=== PATIENT | female | born 1980 | race Caucasian/White ===

== ENCOUNTER 2017-07-30 01:15 | Observation (INO) | payer OTHER ==
[~2017-07-30] VITALS: Ht 160 cm; Wt 81.6 kg
[~2017-07-30 01:15] MED LIST: ATORVASTATIN CA20 M1 PO; ATORVASTATIN CA40 M1 PO; MIRENA1 EACH; MULTIVITAMINS1 EAC9 PO; PERCOCET 5-3251 EACH PO; VITAMIN D2000 UNIT PO
--- NOTE | 2017-07-30 14:19 | Admission Core Measures ---
Acute Coronary Syndrome (CM) ACS Core Measures Acute Coronary Syndrome Diagnosis No Congestive Heart Failure (NEW) CHF Core Measures Congestive Heart Failure Diagnosis No Cerebrovascular Accident (NEW) CVA Core Measures CVA/TIA Diagnosis No Venous Thromboembolism VTE Core Porsha (View Protocol) VTE Risk Factors Surgery No Mechanical VTE Prophylaxis d/t N/A MechProphylax Ordered No VTE Pharm Prophylaxis d/t NA PharmProphylax ordered Problem List As ranked by this Provider includes Assessment & Plan 1. Thyroid nodule HOME MEDS Home Med List Atorvastatin Calcium 20 MG TABLET 1 TAB PO DAILY CHOLESTEROL (Reported) Cholecalciferol (Vitamin D3) (Vitamin D) 2,000 UNIT CAPSULE 1 CAP PO DAILY SUPPLEMENT (Reported) Multiple Vitamin (Multivitamins) 1 EACH TABLET 1 TAB PO DAILY SUPPLEMENT ( Reported)
[2017-07-30 16:33] VITALS: BP 110/64
[2017-07-30] MEDS ORDERED: ENDOCET 5-3251 EACH PO (16:37)
--- NOTE | 2017-07-30 16:37 | PN- General Surgery ---
Subjective Subjective: POC: no complaints, pain controlled, voice ok, no horseness, no diff swallowing, no stridor. comfortable. Objective Vital Signs and I&Os Intake & Output 07/30 1600 07/30 0807/30 0000 07/29 1600 07/29 0807/29 0000 Intake Total Output Total Balance Patient 180 lb Weight vss, afebrile Physical Exam: wdwn, aox3, nad HEENT-wnl, voice ok, no stridor, swallowing well. Neck- scant s/s oozing on central portion of dressing, cdi, tequila drain in place with 5cc of bloody drainage. trachea midline no swellilng, non tender. no resp distress aox3,nad Results Last 48 Hours of Labs: Laboratory Tests 07/30 07/30 1415 0845 Chemistry Calcium (8.4 - 10.2 mg/dL) 8.9 Albumin (3.5 - 5.0 g/dL) 4.1 Urines Urine Test NEGATIVE Assessment/Plan Assessment/Plan POD0 sp thyroidectomy 2/2 thyroid cancer tequila drain to self suction clears, advance in am ivf pain meds prn oob ad eduar calcium and albumin q8h x3 trach kit at bedside Endocrine consult in am, sees Dr Beth as out pt cont 23hr obs, likely pull drain and discharge home tomorrow Core Measures Venous Thromboembolism VTE Risk Factors Surgery No Mechanical VTE Prophylaxis d/t N/A MechProphylax Ordered No VTE Pharm Prophylaxis d/t NA PharmProphylax ordered
--- NOTE | 2017-07-30 16:41 | Patient Discharge Instructions ---
Discharge Instructions General Discharge Information You were seen/treated for: thyroid cancer, sp total thyroidecotmy You had these procedures: see above Watch for these problems: redness, swelling, discharge from the wound, fever, difficluty swallowing or breathing. Do not soak the wound: Yes Other wound care: dressing change in 2-3 days, dry dressing as needed. Special Instructions: call to make follow up appointment with Dr Quezada and Dr Beth Diet Continue normal diet: Yes Activity Full Activity/No Limits: No Activity Self Limited: Yes Additional ACTIVITY Info: no excessive physical activity Acute Coronary Syndrome Inclusion Criteria At DC or during hospital stay patient has or had the following: ACS DIAGNOSIS No Discharge Core Measures Meds if any: Prescribed or Continued at Discharge Meds if any: NOT Prescribed or Continued at Discharge Congestive Heart Failure Inclusion Criteria At DC or during hospital stay patient has or had the following: CHF DIAGNOSIS No Discharge Core Measures Meds if any: Prescribed or Continued at Discharge Meds if any: NOT Prescribed or Continued at Discharge Cerebrovascular accident Inclusion Criteria At DC or during hospital stay patient has or had the following: CVA/TIA Diagnosis No Discharge Core Measures Meds if any: Prescribed or Continued at Discharge Meds if any: NOT Prescribed or Continued at Discharge Venous thromboembolism Inclusion Criteria VTE Diagnosis No VTE Type NONE VTE Confirmed by (Test) NONE Discharge Core Measures - Per Current guidelines, there needs to be overlap - treatment for the first 5 days of Warfarin therapy. - If discharged on Warfarin prior to 5 days of - overlap therapy, the patient will need to be - assessed for post discharge needs including - *Post discharge parental anticoagulation - *Warfarin and/or parental anticoagulation education - *Follow up date to check INR post discharge At least 5 days overlap therapy as Inpatient No Meds if any: Prescribed or Continued at Discharge Note: Overlap Therapy is Warfarin and Anticoagulant Meds if any: NOT Prescribed or Continued at Discharge
--- NOTE | 2017-07-30 18:13 | Operative Report ---
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 Patient was placed on the OR table supine, over the thyroid bar, after successful induction of general anesthesia and the timeouts, and setting up the NIMS electrodes for monitoring, the patient's neck from chin to chest were clipped prepped and draped in the usual sterile fashion. We had already marked a skin crease near the cricoid in Same Day, and then infiltrated local anesthetic and then made this incision with a 15 blade, extending between the medial borders of the sternocleidomastoid muscles. The incision was deepened through the subcutaneous fat and subplatysmal flaps, preserving the underlying anterior jugular veins, were made superiorly to the thyroid cartilage and inferiorly not quite to the sternal notch. Because of prior surgery these flaps to go little more time to develop paying care to avoid injury to the anterior jugular veins. This was a more tedious step but eventually the midline was identified between the strap muscles and opened vertically and then using an Allis clamp first, the sternohyoid and then the sternal thyroid muscles were and then retracted laterally off the thyroid towards the carotid sheath, by this time in a virgin plane and the dissection proceeded more routinely. At that deep lateral extent we proceeded superiorly to mobilize the upper pole, all with the Harmonic scalpel, care was taken to disconnect the entire tip of the upper pole requiring dissection both medial and lateral, the medial window was important to preserve the motor branch of the superior laryngeal, also posteriorly, care was taken to preserve both the blood supply and the superior parathyroid gland as it was swept off the posterior capsule. Once the branches of the superior thyroid vessels were divided, the upper pole was mobilized and brought down and out into the incision. We then mobilized laterally at the middle of the lobe and then inferiorly around the inferior pole and back here there was the inferior parathyroid gland which was also preserved. Then we turned our dissection to get a better sense of Isidro's ligament which we left for last, where branches of the inferior thyroid vessels and the recurrent laryngeal nerve come close. We were able to get the dissection just inside the capsule and disconnected the lobe completely from the lateral aspect of the trachea without getting too close to the nerve. This nerve was identified and preserved. It is noted that just like on her left side she had additional thyroid gland at Isidro's ligament wrapping laterally and posteriorly which on the left side I deliberately left some because of the proximity to the nerve on this side it was a little easier to dissect while maintaining visualization of the nerve, and checking with the probe, but even here I decided to leave a few millimeters behind in the interest of safety of the nerve. Next we checked for hemostasis no sutures or Surgicel were needed, we placed a 10 [place] round Micah-Davis drain into the area through a separate stab incision, secured to the skin with a nylon suture, and then closed by first reapproximating the strap muscles over the trachea in the middle paying care not to injure those jugular veins on either side, and then the platysma was reapproximated with a running 3-0 Vicryl suture as well, then the skin was reapproximated with a running subcuticular 4-0 Biosyn suture followed by Mastisol Steri-Strips Telfa and Tegaderm. Estimated blood loss was minimal lap and sponge counts were correct wound expectancy was clean, IV fluids crystalloid, complications none, patient tolerated the procedure well was awakened extubated and returned to the recovery room in satisfactory condition where once more awake, was able to phonate but with some hoarseness.
[2017-07-30 18:34] VITALS: BP 102/70
[2017-07-30 22:30] VITALS: BP 112/80
[2017-07-31 02:30] VITALS: BP 108/76
[2017-07-31 07:01] VITALS: BP 100/64
--- NOTE | 2017-07-31 07:21 | PN- General Surgery ---
See Addendum Subjective Subjective: Reports some soreness. Tolerating clears. She felt weak and dizzy yesterday, but feels better this morning. Out of bed to bathroom several times overnight to void. No shortness of breath. Known to . She anticipates discharge to home today. Objective Vital Signs and I&Os Vital Signs Date Time Temp Pulse Resp B/P B/P Pulse O2 O2 Flow FiO2 Mean Ox Delivery Rate 07/31 0701 97.9 83 20 100/64 95 Room Air 07/31 0230 98.1 86 20 108/76 95 Room Air 07/30 2230 98.3 89 20 112/80 97 Room Air 07/30 1834 98.3 89 20 102/70 93 Room Air 07/30 1633 98.7 95 20 110/64 94 Room Air Intake & Output 07/31 0800 07/31 0000 07/30 1600 07/30 0800 07/30 0000 07/29 1600 Intake Total 600 100 Output Total 5 10 Balance 595 90 Intake, IV 200 100 Intake, Oral 400 Output, 5 10 Drainage Patient 180 lb 180 lb Weight Physical Exam: General - alert & oriented x 3. comfortable. no acute distress. Neck - dressing c/d/i. ODETTE drained 5 mls serosang drainage overnight. no hematoma Lungs - clear bilaterally. no w/r/r Cardiac - s1s2. reg. Abdomen - soft. nontender. Extremities - warm bilaterally. no c/c/e. calves soft and nontender b/l. Current Medications: Current Medications Sig/Beverly Start time Last Medication Dose Route Stop Time Status Admin Acetaminophen 650 MG Q6P PRN 07/30 1615 AC PO Atorvastatin Calcium 20 MG 1700 07/30 1700 AC PO Cefazolin Sodium 2 GM IQ8 07/31 0200 CAN N/A 1 UNIT IV 08/01 0159 Cefazolin Sodium 2 GM Q8H 07/30 2000 AC 07/31 N/A 1 UNIT IV 07/31 1959 0400 Cefazolin Sodium 2 GM IQ8 07/30 1600 DC N/A 1 UNIT IV 07/31 1559 Cefazolin Sodium 2,000 MG ONCE 07/30 0000 DC IV 07/30 2359 Fentanyl Citrate 250 MCG .STK-MED ONE 07/30 0850 DC IM 07/30 0851 Heparin Sodium 5,000 UNIT Q8 07/30 2200 AC 07/31 (Porcine) SC 0527 Hydromorphone HCl 1 MG Q2-3 HRS NEEDED.. 07/30 1615 AC 07/30 IV 1834 Labetalol HCl 100 MG .STK-MED ONE 07/30 1436 DC IV 07/30 1437 Lactated Ringer's 1,000 ML Q20H 07/30 1615 DC IV Midazolam HCl 2 MG .STK-MED ONE 07/30 0850 DC IM 07/30 0851 Ondansetron HCl 4 MG Q6P PRN 07/30 1630 AC 07/30 IV 1836 Ondansetron HCl 4 MG Q6P PRN 07/30 1615 DC IV Oxycodone/ 1 TAB Q4P PRN 07/30 1615 AC Acetaminophen PO Oxycodone/ 2 TAB Q4P PRN 07/30 1615 AC Acetaminophen PO Promethazine HCl 12.5 MG Q6P PRN 07/30 1615 AC 07/30 IV 08/06 1429 2120 Remifentanil HCl 4 MG .STK-MED ONE 07/30 0850 DC IV 07/30 0851 Results Last 48 Hours of Labs: Laboratory Tests 07/30 07/30 07/30 2200 1415 0845 Chemistry Calcium (8.4 - 10.2 mg/dL) 8.5 8.9 Albumin (3.5 - 5.0 g/dL) 4.5 4.1 Urines Urine Test NEGATIVE Assessment/Plan Assessment/Plan This 37 year old female is POD#1 s/p completion total thyroidectomy (right lobe) for multifocal papillary thyroid carcinoma tolerating clears. advance to [facility] soft diet percocet prn pain control herlinda-operative ancef complete f/u serial calcium / albumin blood draws ODETTE drain removed oob/ambulation hep sc - dvt ppx consult for d/c med recommendations s/p completion thyroidectomy observation status with the anticipation of discharge today will d/w Core Measures Venous Thromboembolism VTE Risk Factors Surgery No Mechanical VTE Prophylaxis d/t N/A MechProphylax Ordered No VTE Pharm Prophylaxis d/t NA PharmProphylax ordered
[2017-07-31] MEDS ORDERED: LEVOTHYROXINE137 MCG PO (08:01)
[2017-07-31] MEDS ORDERED: ENDOCET 5-3251 EACH PO (08:02)
[2017-07-31 09:04] LABS: ABSOLUTE BASOPHIL COUNT 0.1 /CUMM (0.0-0.2); ABSOLUTE EOSINOPHIL COUNT 0 /CUMM (0.0-0.7); ABSOLUTE GRANULOCYTE CT 14.3 /CUMM (1.4-6.5); ABSOLUTE LYMPH COUNT 1.1 /CUMM (1.2-3.4); ABSOLUTE MONOCYTE COUNT 0.6 /CUMM (0.10-0.60); BASOPHIL % 0.3 % (0.0-2.0); EOSINOPHIL % 0 % (0-5); HEMATOCRIT 41.6 % (37-47); MEAN CORPUSCULAR HGB 28.3 PG (27.0-31.0); MEAN CORPUSCULAR HGB CONC 32.9 G/DL (33.0-37.0); RBC DISTRIBUTION WIDTH 14.1 % (11.5-14.5); RED BLOOD CELL CT 4.84 /CUMM (4.20-5.40); WHITE BLOOD CELL COUNT 16.1 /CUMM (4.8-10.8)
[2017-07-31 10:03] LABS: GRANULOCYTE % 89.1 % (42.2-75.2); PLATELET COUNT 255 /CUMM (130-400)
[2017-07-31 10:23] VITALS: BP 110/70
== END 2017-07-31 12:30 ==
LOC: STS 01:15 → EDSTATUS 07:00 → 2NA 14:05 → PACUH 14:05 → ENRESERV 15:02 → 2NA 16:07 → ENPENDDIS 07-31 09:47 → 2NA 07-31 12:30
PROVIDERS: Physician Assistant Surgical
DX: C73 Malignant neoplasm of thyroid gland (principal); D34 Benign neoplasm of thyroid gland; E06.3 Autoimmune thyroiditis; E66.9 Obesity, unspecified; E78.5 Hyperlipidemia, unspecified
CPT/HCPCS: 6030; 36415; 81025; 82436; 96372; 96374; 96375; G0378; J0690; J1644; J2405; J2550; J7120